=== PATIENT | male | born 1990 | race Caucasian/White ===

== ENCOUNTER 2017-08-08 16:57 | Inpatient (IN) | payer BC ==
[~2017-08-08] VITALS: Ht 172.7 cm; Wt 102.3 kg
[2017-08-08 17:57] LABS: BASO # 0.1 (0.0-0.2); BASO % 0.6 % (0.0-2.0); EOS # 0.5 (0.0-0.7); EOS % 5.9 % (0-4.0); GRAN # 4.4 (1.4-6.5); GRAN % 54.4 % (42.2-75.2); HEMATOCRIT 44.6 % (42.0-52.0); HEMOGLOBIN 15.1 g/dl (13.5-18.0); LYMPH # 2.2 (1.2-3.4); LYMPH % 27.1 % (20.0-51.0); MEAN CELL VOLUME 91 fl (80.0-100.0); MEAN CORPUSCULAR HEMOGLOBIN 31 pg (27.0-31.0); MEAN CORPUSCULAR HGB CONC 34 g/dl (33.0-37.0); MEAN PLATELET VOLUME 10.7 fl (7.4-10.4); MONO # 0.9 (0.1-0.6); MONO % 11.5 % (1.7-9.3); PLATELET COUNT 213 K/mm3 (130-400); RED BLOOD COUNT 4.92 M/mm3 (4.20-5.60); REDCELL DISTRIBUTION WIDTH-CV 11.8 % (11.5-14.5)
[2017-08-08 18:13] LABS: INFLUENZA A NEGATIVE; INFLUENZA B NEGATIVE
[2017-08-08 19:00] LABS: ALBUMIN 4.7 gm/dL (3.5-5.0); BILIRUBIN,TOTAL 0.7 mg/dL (0.0-1.0); C-REACTIVE PROTEIN 3.4 mg/dL (0.0-0.9); CALCIUM 9.2 mg/dL (8.4-10.2); CREATININE, serum 0.86 mg/dL (0.66-1.25); POTASSIUM 4.1 mmol/L (3.4-5.0); TOTAL PROTEIN 7.9 gm/dL (6.4-8.2)
[2017-08-09 00:07] VITALS: BP 119/58; PULSE 97; TEMP 98.5
[2017-08-09 04:27] VITALS: BP 109/50; PULSE 89; TEMP 98.1
[2017-08-09 07:15] LABS: CALCIUM 9.4 mg/dL (8.4-10.2); CREATININE, serum 0.8 mg/dL (0.66-1.25); POTASSIUM 3.9 mmol/L (3.4-5.0)
[2017-08-09 07:21] LABS: BASO % 0.6 % (0.0-2.0); EOS # 0.1 (0.0-0.7); EOS % 1.8 % (0-4.0); GRAN # 5.2 (1.4-6.5); GRAN % 73.6 % (42.2-75.2); HEMATOCRIT 43.4 % (42.0-52.0); HEMOGLOBIN 14.3 g/dl (13.5-18.0); LYMPH # 1.3 (1.2-3.4); LYMPH % 18.4 % (20.0-51.0); MEAN CELL VOLUME 93 fl (80.0-100.0); MEAN CORPUSCULAR HEMOGLOBIN 31 pg (27.0-31.0); MEAN CORPUSCULAR HGB CONC 33 g/dl (33.0-37.0); MEAN PLATELET VOLUME 10.8 fl (7.4-10.4); MONO # 0.4 (0.1-0.6); MONO % 4.9 % (1.7-9.3); PLATELET COUNT 217 K/mm3 (130-400); RED BLOOD COUNT 4.68 M/mm3 (4.20-5.60); REDCELL DISTRIBUTION WIDTH-CV 11.9 % (11.5-14.5)
[2017-08-09 07:54] VITALS: BP 113/48; PULSE 78; TEMP 98
[2017-08-09 11:26] VITALS: BP 121/48; PULSE 86; TEMP 97.7
[2017-08-09 15:45] VITALS: BP 123/47; PULSE 83; TEMP 97.9
[2017-08-09 20:59] VITALS: BP 122/55; PULSE 84; TEMP 98.2
[2017-08-10 00:16] VITALS: BP 126/64; PULSE 71; TEMP 97.8
[2017-08-10 04:58] VITALS: BP 121/60; PULSE 78; TEMP 97.4
[2017-08-10 08:25] VITALS: BP 125/54; PULSE 69; TEMP 97.2
[2017-08-10 11:19] VITALS: BP 117/50; PULSE 85; TEMP 98.4
[2017-08-10 15:46] VITALS: BP 132/64; PULSE 91; TEMP 97.8
[2017-08-10 20:28] VITALS: BP 117/63; PULSE 94; TEMP 98.7
[2017-08-11 01:27] VITALS: BP 130/61; PULSE 93; TEMP 97.4
[2017-08-11 04:40] VITALS: BP 127/69; PULSE 76; TEMP 97.4
[2017-08-11 07:40] LABS: BASO % 0.4 % (0.0-2.0); EOS # 0.5 (0.0-0.7); EOS % 5.4 % (0-4.0); GRAN # 5.4 (1.4-6.5); GRAN % 59.4 % (42.2-75.2); HEMATOCRIT 43.7 % (42.0-52.0); HEMOGLOBIN 14.9 g/dl (13.5-18.0); LYMPH # 2.6 (1.2-3.4); LYMPH % 28.8 % (20.0-51.0); MEAN CELL VOLUME 91 fl (80.0-100.0); MEAN CORPUSCULAR HEMOGLOBIN 31 pg (27.0-31.0); MEAN CORPUSCULAR HGB CONC 34 g/dl (33.0-37.0); MEAN PLATELET VOLUME 10.3 fl (7.4-10.4); MONO # 0.4 (0.1-0.6); MONO % 4.7 % (1.7-9.3); PLATELET COUNT 253 K/mm3 (130-400); RED BLOOD COUNT 4.81 M/mm3 (4.20-5.60); REDCELL DISTRIBUTION WIDTH-CV 11.9 % (11.5-14.5)
[2017-08-11 08:16] VITALS: BP 122/62; PULSE 83; TEMP 97.6
[2017-08-11 09:38] LABS: HIV 1/2 Antibodies Non-Reactive; HIV-1p24 Antigen Non-Reactive
[2017-08-11 12:14] VITALS: BP 128/62; PULSE 104; TEMP 97.9
[2017-08-11 16:30] VITALS: BP 121/54; PULSE 114; TEMP 98.3
[2017-08-11 20:15] VITALS: BP 129/54; PULSE 93; TEMP 99.1
[2017-08-12] VITALS (7 sets, daily range): BP systolic 119–140; BP diastolic 48–70; PULSE 82–113; TEMP 97.9–98.5
[2017-08-12 09:40] LABS: CALCIUM 9.5 mg/dL (8.4-10.2); CREATININE, serum 0.8 mg/dL (0.66-1.25); POTASSIUM 3.8 mmol/L (3.4-5.0)
[2017-08-13 05:13] VITALS: BP 117/55; PULSE 103; TEMP 97.6
[2017-08-13 07:00] LABS: HEMATOCRIT 42.9 % (42.0-52.0); HEMOGLOBIN 14.5 g/dl (13.5-18.0); MEAN CELL VOLUME 92 fl (80.0-100.0); MEAN CORPUSCULAR HEMOGLOBIN 31 pg (27.0-31.0); MEAN CORPUSCULAR HGB CONC 34 g/dl (33.0-37.0); MEAN PLATELET VOLUME 10.4 fl (7.4-10.4); PLATELET COUNT 297 K/mm3 (130-400); RED BLOOD COUNT 4.68 M/mm3 (4.20-5.60); REDCELL DISTRIBUTION WIDTH-CV 11.9 % (11.5-14.5)
[2017-08-13 07:05] LABS: CALCIUM 9.7 mg/dL (8.4-10.2); CREATININE, serum 0.71 mg/dL (0.66-1.25); POTASSIUM 3.8 mmol/L (3.4-5.0)
[2017-08-13 07:28] VITALS: BP 123/50; PULSE 97; TEMP 97.6
[2017-08-13 08:48] LABS: BAND 22 % (0-10); LYMPHOCYTE 27 % (20.0-51.0); METAMYELOCYTE 1 % (0-0); NEUTROPHILS 50 % (42.0-75.2)
[2017-08-13 08:49] LABS: PLATELET ESTIMATE NORMAL (NORMAL)
[2017-08-13] MEDS ORDERED: PROAIR HFA0.09 MG/AC IH (09:48)
[2017-08-13] MEDS ORDERED: PREDNISONE20 MG PO (09:48)
[2017-08-13] MEDS ORDERED: MUCINEX1200 MG PO (09:49)
[2017-08-13] MEDS ORDERED: FLONASE NASAL S16 GM NS (09:49)
[2017-08-13 11:00] VITALS: BP 135/56; PULSE 107; TEMP 97.6
[2017-08-13 12:49] VITALS: PULSE 98
[2017-08-15 11:49] LABS: .HISTOPLASMA ANTIGEN SERUM None Detected (())
== END 2017-08-13 14:42 | disposition home or self-care (01) | DRG 193 ==
LOC: COL.ER 16:57 → MEDICAL 20:30
PROVIDERS: Emergency Medicine; Internal Medicine Pulmonary Disease; Nurse Practitioner Family
DX: J18.9 Pneumonia, unspecified organism (principal); J96.01 Acute respiratory failure with hypoxia; R09.02 Hypoxemia; K76.0 Fatty (change of) liver, not elsewhere classified; F17.210 Nicotine dependence, cigarettes, uncomplicated; Z23 Encounter for immunization; J98.01 Acute bronchospasm
CPT/HCPCS: 99223-AI; 99231-AI; 99232-AI; 99239; G0378; J0456; J0696; J3475; J7030; J7050; J7512; Q9967